=== PATIENT | male | born 1990 | race African-American/Black ===

== ENCOUNTER 2018-02-18 21:06 | Emergency (ER) | payer OTHER ==
[~2018-02-18] VITALS: Ht 182.9 cm; Wt 77.1 kg
[~2018-02-18 21:06] MED LIST: UNOBMED
[2018-02-18] MEDS ORDERED: LORazepam Inj 2mg/ml 1ml IM ONE (21:15)
[2018-02-18] MEDS ORDERED: Haloperidol 5mg/ml Inj IM ONE (21:15)
--- NOTE | 2018-02-18 21:18 | Emergency Room Report ---
History of Present Illness General Chief Complaint: Behavioral Complaint Source: EMS Present Illness HPI Is a 27-year-old male with a history of bipolar schizophrenia. He was brought in by EMS and police for agitation and bizarre behavior. Denies any drug use. He was walking on the street and then trying to get into a residential facility. He claimed that he is allergic to check for termite. He was not cooperative was very agitated. Please brought him in as a 5150 as a danger to self. Patient denies any drug use or alcohol use. He denies suicidal thoughts or homicidal thought. His speech is very pressured and he is very agitated. Allergies: Coded Allergies: UNABLE TO ASSESS (Unverified , 02/18/18) Patient History Past Medical History: see triage record, old chart reviewed, psych hx Past Surgical History: unable to obtain Pertinent Family History: unable to obtain Immunizations: other Reviewed Nursing Documentation: PMH: Agreed; PSxH: Agreed Review of Systems Eye: Denies: eye pain, blurred vision ENT: Denies: ear pain, nose congestion, throat swelling Respiratory: Denies: cough, shortness of breath Cardiovascular: Denies: chest pain, palpitations Gastrointestinal: Denies: abdominal pain, diarrhea, nausea, vomiting Musculoskeletal: Denies: back pain, joint pain Skin: Denies: rash Neurological: Denies: headache, numbness Endocrine: Denies: increased thirst, increased urine Hematologic/Lymphatic: Denies: easy bruising All Other Systems: negative except mentioned in HPI Physical Exam vitals with tachycardia Sp02 EP Interpretation: reviewed, normal General Appearance: well appearing, no apparent distress, alert Head: normocephalic, atraumatic Eyes: bilateral eye PERRL, bilateral eye EOMI ENT: hearing grossly normal, normal pharynx Neck: full range of motion, supple, no meningismus Respiratory: chest non-tender, lungs clear, normal breath sounds Cardiovascular #1: regular rate, rhythm, no murmur Gastrointestinal: normal bowel sounds, non tender, no mass, no organomegaly, no bruit, non-distended Musculoskeletal: back normal, normal range of motion Neurologic: alert, oriented x3, grossly normal Psychiatric: other - Agitated, not cooperative Skin: warm/dry Medical Decision Making Diagnostic Impression: Primary Impression: Psychosis Qualified Codes: F23 - Brief psychotic disorder Additional Impression: Polysubstance abuse ER Course Patient presents with acute psychosis secondary to drug abuse. He was combative and not cooperative on arrival. He received Haldol and Ativan while he was 2 and handcuffed. Since then he's been sleeping and calm. The restraints was able to be removed without difficulty. He was placed on a 5150 by police. He is medically cleared for psychiatric evaluation. We'll get psychiatric evaluation in the morning. He may be able to be cleared up a 5150. I will sign pt out to Dr. Sheth for psych eval and final disposition. Lab Results Impression labs unremarkable Status: improved Disposition: XFER TO PSYCH HOSP/UNIT Condition: Stable EILEEN WISE M.D. Feb 18, 2018 21:18
[2018-02-18 21:36] VITALS: BP 138/76
[2018-02-18 22:12] LABS: BASOPHILS % (AUTO) 1.5 % (0.0-2.0); EOSINOPHILS % (AUTO) 0.3 % (0.0-3.0); HEMATOCRIT 51.4 % (42.0-52.0); LYMPHOCYTES % (AUTO) 18.3 % (20.0-45.0); MEAN CORPUSCULAR VOLUME 86 FL (80-99); MONOCYTES % (AUTO) 4.1 % (1.0-10.0); NEUTROPHILS % (AUTO) 75.9 % (45.0-75.0); PLATELET COUNT 222 K/UL (150-450); RED BLOOD COUNT 5.96 M/UL (4.70-6.10); RED CELL DISTRIBUTION WIDTH 10.9 % (11.6-14.8); WHITE BLOOD COUNT 7.6 K/UL (4.8-10.8)
[2018-02-18 22:16] LABS: ANION GAP 13 mmol/L (5-15); BLOOD UREA NITROGEN 17 mg/dL (7-18); CALCIUM 9.2 MG/DL (8.5-10.1); CARBON DIOXIDE 22 MMOL/L (21-32); CHLORIDE 104 MMOL/L (98-107); CREATININE 1.6 MG/DL (0.55-1.30); POTASSIUM 3.4 MMOL/L (3.5-5.1); SODIUM 139 MMOL/L (136-145)
[2018-02-18 22:26] LABS: ALANINE AMINOTRANSFERASE 20 U/L (12-78); ALBUMIN 4.7 G/DL (3.4-5.0); ALBUMIN/GLOBULIN RATIO 1.3 (1.0-2.7); ALKALINE PHOSPHATASE 61 U/L (46-116); ASPARTATE AMINO TRANSFERASE 25 U/L (15-37); BILIRUBIN,TOTAL 2.6 MG/DL (0.2-1.0)
[2018-02-18 22:28] LABS: BILIRUBIN,DIRECT 0.3 MG/DL (0.0-0.3)
[2018-02-18 22:45] VITALS: BP 129/76
[2018-02-18 23:13] LABS: APPEARANCE,URINE CLEAR; BILIRUBIN, URINE NEGATIVE (NEGATIVE); GLUCOSE, URINE (UA) NEGATIVE (NEGATIVE); KETONES,URINE 2+ (NEGATIVE); LEUKOCYTE ESTERASE ,URINE NEGATIVE (NEGATIVE); NITRITE,URINE NEGATIVE (NEGATIVE); PH,URINE 6 (4.5-8.0); PROTEIN,URINE 2+ (NEGATIVE); UROBILINOGEN,URINE NORMAL MG/DL (0.0-1.0)
[2018-02-18 23:18] LABS: COLOR,URINE YELLOW
[2018-02-19] VITALS (7 sets, daily range): BP systolic 100–127; BP diastolic 65–78
--- NOTE | 2018-02-19 23:54 | Consultation ---
History of Present Illness General Chief Complaint: Behavioral Complaint Present Illness HPI 27-year-old male with a history of "bipolar schizophrenia", substance use d/o. He was brought in by EMS and police for agitation and bizarre behavior. the pt Denies any drug use, his system was positive for mj, cocaine and meth. the pt was in tented house. the pt was not suicidal however the hold was written for dts/ the pt cleared up and was not psychotic at the time of the eval Allergies: Coded Allergies: UNABLE TO ASSESS (Unverified , 02/18/18) Medication History Miscellaneous Medications Unable to Obtain Medications (Unable To Obtain Meds), (Reported) Patient History History Provided By: Patient, Medical Record, PMD Healthcare decision maker Resuscitation status Advanced Directive on File Review of Systems Psychiatric: Reports: prior hx, anxiety, depressed feelings, emotional problems Physical Exam General Appearance: no apparent distress, alert Neurologic: oriented x 3, responsive, normal mood/affect Last 24 Hour Vital Signs Date Time Temp Pulse Resp B/P (MAP) Pulse Ox O2 Delivery O2 Flow Rate FiO2 02/19/18 13:32 97.8 84 20 100/69 97 Room Air 97.8 02/19/18 10:00 97.8 84 20 100/69 97 Room Air 97.8 02/19/18 06:29 65 16 127/69 97 Room Air 02/19/18 05:15 98.7 65 20 117/65 98 Room Air 98.7 02/19/18 03:07 70 18 122/70 98 Room Air 02/19/18 01:46 72 16 125/78 97 Room Air 02/19/18 00:44 70 16 127/75 97 Room Air Height (Feet): 6 Weight (Pounds): 170 Assessment/Plan Status: stable Assessment/Plan substance use d/o not at imminent dts/dto -the pt hold will be discontinued -the pt will be discharged Miguelito Cottrell M.D. Feb 19, 2018 23:54
== END 2018-02-19 13:33 | disposition home or self-care (01) ==
LOC: EDBD 21:06 → EMR 21:20
DX: F23 Brief psychotic disorder (principal); F19.10 Other psychoactive substance abuse, uncomplicated; F31.9 Bipolar disorder, unspecified
CPT/HCPCS: 36415; 80053; 80307; 80329; 81003; 82248; 85025; 96372; 99284; J1630; J8499

== ENCOUNTER 2019-05-26 23:28 | Emergency (ER) | payer OTHER ==
[~2019-05-26] VITALS: Ht 177.8 cm; Wt 77.1 kg
[2019-05-26 23:30] VITALS: BP 137/94
--- NOTE | 2019-05-26 23:30 | NUR ---
ED Nurse Note: PT JOYCE MEDRANO 28 D/T SUBSTANCE ABUSE. PT PICKED UP FROM STREET. [employer] AT BEDSIDE. UNKOWN IF SUBSTANCE WAS INGESTED, INHALED, OR INJECTED.
--- NOTE | 2019-05-26 23:42 | NUR ---
ED Nurse Note: PT STATES "I TOOK METHADONE EARLIER TODAY BUT IM NOT SURE IF IT WAS MIXED WITH SOMETHING"
--- NOTE | 2019-05-26 23:50 | NUR ---
ED Nurse Note: PT UNABLE TO PROVIDE URINE SPECIMEN AT THIS TIME. INFORMED ERMD.
[2019-05-27 00:25] LABS: BASOPHILS % (AUTO) 1.6 % (0.0-2.0); EOSINOPHILS % (AUTO) 1.6 % (0.0-3.0); HEMATOCRIT 40.4 % (42.0-52.0); HEMOGLOBIN 13.5 G/DL (14.2-18.0); LYMPHOCYTES % (AUTO) 33.4 % (20.0-45.0); MEAN CORPUSCULAR VOLUME 88 FL (80-99); MONOCYTES % (AUTO) 10.1 % (1.0-10.0); NEUTROPHILS % (AUTO) 53.3 % (45.0-75.0); PLATELET COUNT 273 K/UL (150-450); WHITE BLOOD COUNT 5.9 K/UL (4.8-10.8)
--- NOTE | 2019-05-27 00:30 | NUR ---
ED Nurse Note: PT BEGAN TO UNDRESS HIMSELF, PT WAS GIVEN GOWN AND COVERED WITH BLANKET. PT REFUSES IN AND OUT CATH. NOT ABLE TO OBTAIN URINE AT THIS TIME.
[2019-05-27 00:42] LABS: ANION GAP 11 mmol/L (5-15); BLOOD UREA NITROGEN 22 mg/dL (7-18); CARBON DIOXIDE 28 MMOL/L (21-32); CHLORIDE 105 MMOL/L (98-107); CREATININE 1.4 MG/DL (0.55-1.30); POTASSIUM 3.8 MMOL/L (3.5-5.1); SODIUM 144 MMOL/L (136-145)
[2019-05-27 00:45] LABS: ALANINE AMINOTRANSFERASE 24 U/L (12-78); ALBUMIN 4.4 G/DL (3.4-5.0); ALBUMIN/GLOBULIN RATIO 1.3 (1.0-2.7); ALKALINE PHOSPHATASE 63 U/L (46-116); ASPARTATE AMINO TRANSFERASE 26 U/L (15-37); BILIRUBIN,TOTAL 1.3 MG/DL (0.2-1.0)
[2019-05-27 00:55] LABS: BILIRUBIN,DIRECT 0.3 MG/DL (0.0-0.3)
--- NOTE | 2019-05-27 01:20 | NUR ---
ED Nurse Note: PT IS CURRENTLY ASLEEP IN BED AT THE TIME. VSS. PT SHOWS NO DISTRESS. X2 SIDERAILS PLACED, BED SET AT LOWEST POSITION.
[2019-05-27 01:21] VITALS: BP 135/87
--- NOTE | 2019-05-27 02:09 | NUR ---
ED Nurse Note: pt urine specimen sent to lab
[2019-05-27 03:48] VITALS: BP 123/76
--- NOTE | 2019-05-27 03:48 | NUR ---
ER DISCHARGE NOTE: Patient is cleared to be discharged per ERMD, pt is aox4, on room air, with stable vital signs. pt was given dc and prescription instructions, pt was able to verbalize understanding, pt id band and iv site removed without complications. pt is able to ambulate with steady gait. pt took all belongings.
--- NOTE | 2019-05-27 22:15 | Emergency Room Report ---
History of Present Illness General Chief Complaint: Substance Abuse Source: Patient Present Illness HPI Patient is a 29-year-old male brought in by EMS after increased agitation. Patient had reportedly ingested Adderall earlier in the day. He reports having no complaints at this time. Patient was brought in by ambulance and has not been given any medications. He had initially been behaving bizarrely.Patient denies any fever. He denies any headache. He had prior history of polysubstance abuse. Allergies: Coded Allergies: UNABLE TO ASSESS (Unverified , 02/18/18) Patient History Past Medical History: see triage record Reviewed Nursing Documentation: PMH: Agreed; PSxH: Agreed Nursing Documentation-PMH Past Medical History: No Stated History Review of Systems All Other Systems: limited - Poor cooperation. Physical Exam Vital Signs Date Time Temp Pulse Resp B/P (MAP) Pulse Ox O2 Delivery O2 Flow Rate FiO2 05/26/19 23:29 98.4 84 20 137/94 (108) 98 Room Air Sp02 EP Interpretation: reviewed, normal General Appearance: normal inspection, well appearing, no apparent distress, alert, GCS 15, non-toxic Head: atraumatic ENT: normal ENT inspection, hearing grossly normal, normal voice Neck: normal inspection, full range of motion, supple, no bony tend Respiratory: normal inspection, lungs clear, normal breath sounds, no respiratory distress, no retraction, no wheezing Cardiovascular #1: regular rate, rhythm, no edema Gastrointestinal: normal inspection, normal bowel sounds, non tender, soft, no guarding, no hernia Genitourinary: no CVA tenderness Musculoskeletal: normal inspection, back normal, normal range of motion Neurologic: normal inspection, alert, responsive, speech normal Psychiatric: normal inspection Medical Decision Making Diagnostic Impression: Primary Impression: Substance abuse ER Course Patient presented for agitation. Differential diagnosis include was not limited to drug overdose, intracranial hemorrhage, dehydration, electrolyte abnormality among others. Because of complexity of patient's case laboratory tests and imaging studies were ordered. Patient was noted to have previous history of similar symptoms in the past. He appears to be intoxicated with methamphetamine. Patient was observed in the emergency department was noted to have gradual improvement in his mental status over time. Patient became less agitated. At the time of discharge patient was awake alert and oriented and ambulatory without assistance. Patient was able to ambulate without assistance. Patient was advised to return if he had any worsening condition or other concerns. He is advised to stop using drugs. Laboratory Tests Test 05/26/19 23:42 White Blood Count 5.9 K/UL (4.8-10.8) Red Blood Count 4.60 M/UL (4.70-6.10) L Hemoglobin 13.5 G/DL (14.2-18.0) L Hematocrit 40.4 % (42.0-52.0) L Mean Corpuscular Volume 88 FL (80-99) Mean Corpuscular Hemoglobin 29.3 PG (27.0-31.0) Mean Corpuscular Hemoglobin Concent 33.5 G/DL (32.0-36.0) Red Cell Distribution Width 11.0 % (11.6-14.8) L Platelet Count 273 K/UL (150-450) Mean Platelet Volume 6.3 FL (6.5-10.1) L Neutrophils (%) (Auto) 53.3 % (45.0-75.0) Lymphocytes (%) (Auto) 33.4 % (20.0-45.0) Monocytes (%) (Auto) 10.1 % (1.0-10.0) H Eosinophils (%) (Auto) 1.6 % (0.0-3.0) Basophils (%) (Auto) 1.6 % (0.0-2.0) Sodium Level 144 MMOL/L (136-145) Potassium Level 3.8 MMOL/L (3.5-5.1) Chloride Level 105 MMOL/L (98-107) Carbon Dioxide Level 28 MMOL/L (21-32) Anion Gap 11 mmol/L (5-15) Blood Urea Nitrogen 22 mg/dL (7-18) H Creatinine 1.4 MG/DL (0.55-1.30) H Estimate Glomerular Filtration Rate > 60 mL/min (>60) Glucose Level 109 MG/DL (74-106) H Calcium Level 10.0 MG/DL (8.5-10.1) Total Bilirubin 1.3 MG/DL (0.2-1.0) H Direct Bilirubin 0.3 MG/DL (0.0-0.3) Aspartate Amino Transferase (AST) 26 U/L (15-37) Alanine Aminotransferase (ALT) 24 U/L (12-78) Alkaline Phosphatase 63 U/L (46-116) Total Protein 7.7 G/DL (6.4-8.2) Albumin 4.4 G/DL (3.4-5.0) Globulin 3.3 g/dL Albumin/Globulin Ratio 1.3 (1.0-2.7) Salicylates Level < 0.2 ug/mL (2.8-20) L Urine Opiates Screen Negative (NEGATIVE) Acetaminophen Level < 2 MCG/ML (10-30) L Urine Barbiturates Screen Negative (NEGATIVE) Phencyclidine (PCP) Screen Negative (NEGATIVE) Urine Amphetamines Screen Positive (NEGATIVE) H Urine Benzodiazepines Screen Negative (NEGATIVE) Urine Cocaine Screen Negative (NEGATIVE) Urine Marijuana (THC) Screen Positive (NEGATIVE) H Serum Alcohol < 3 mg/dL Last Vital Signs Date Time Temp Pulse Resp B/P (MAP) Pulse Ox O2 Delivery O2 Flow Rate FiO2 05/27/19 03:48 98.4 73 16 123/76 100 Room Air Status: improved Disposition: HOME, SELF-CARE Condition: Stable Patient Instructions: Stimulant Use Disorder-Tee Valdez MD May 27, 2019 22:15
== END 2019-05-27 03:48 | disposition home or self-care (01) ==
LOC: EDBD 23:28 → EDUNIT# 23:28 → EMR 23:45
DX: F15.10 Other stimulant abuse, uncomplicated (principal); F12.10 Cannabis abuse, uncomplicated
CPT/HCPCS: 36415; 80053; 80196; 80307; 80329; 82248; 85025; Z7502; 99283

== ENCOUNTER 2020-01-02 03:21 | Emergency (ER) | payer OTHER ==
[~2020-01-02] VITALS: Ht 185.4 cm; Wt 86.2 kg
[2020-01-02 03:22] VITALS: BP 128/76
[2020-01-02] MEDS ORDERED: Bactrim-DS 1 tab ORAL ONE (03:30)
[2020-01-02] MEDS ORDERED: Cephalexin 500mg cap ORAL ONE (03:30)
[2020-01-02] MEDS ORDERED: BACTRIM DS TAB1 EAC1 ORAL (03:36)
[2020-01-02] MEDS ORDERED: CEPHALEXIN500 MG ORAL (03:36)
--- NOTE | 2020-01-02 03:37 | Emergency Room Report ---
History of Present Illness General Chief Complaint: Upper Extremity Injury Source: Patient Present Illness HPI Is a 29-year-old male who is right-hand dominant. He presents with chief complaint of spider bite. He has a history of schizophrenia and substance abuse. He claimed that his injury occur yesterday. He said is painful to the left index finger. No fever chills. Pain is throbbing in nature. No nausea or vomiting. It appeared that he had an I&D and surgical intervention to that left index finger. He said he was at [facility] 5 days ago and had some type of surgery. He was given Risperdal, Hope and antibiotic cream. He said he also got antibiotics but does not know the name. He said he was arrested yesterday and was handcuffed and he said to get worse. Patient was very vague historian. He denies any other complaint. Allergies: Coded Allergies: No Known Allergies (Unverified , 01/02/20) COVID-19 Screening Contact w/high risk pt: No Recent Travel to affected area: No Experienced COVID-19 symptoms?: No Patient History Past Medical History: see triage record, old chart reviewed Past Surgical History: none Pertinent Family History: none Social History: Denies: smoking Immunizations: other Reviewed Nursing Documentation: PMH: Agreed; PSxH: Agreed Review of Systems Eye: Denies: eye pain, blurred vision ENT: Denies: ear pain, nose congestion, throat swelling Respiratory: Denies: cough, shortness of breath Cardiovascular: Denies: chest pain, palpitations Gastrointestinal: Denies: abdominal pain, diarrhea, nausea, vomiting Musculoskeletal: Reports: joint swelling, muscle pain; Denies: back pain, joint pain Skin: Denies: rash Neurological: Denies: headache, numbness Endocrine: Denies: increased thirst, increased urine Hematologic/Lymphatic: Denies: easy bruising All Other Systems: negative except mentioned in HPI Physical Exam Vital Signs Date Time Temp Pulse Resp B/P (MAP) Pulse Ox O2 Delivery O2 Flow Rate FiO2 01/02/20 03:22 97.7 84 18 128/76 (93) 97 Room Air Vitals normal Sp02 EP Interpretation: reviewed, normal General Appearance: well appearing, no apparent distress, alert Head: normocephalic, atraumatic Eyes: bilateral eye PERRL, bilateral eye EOMI ENT: hearing grossly normal, normal pharynx Neck: full range of motion, supple, no meningismus Respiratory: chest non-tender, lungs clear, normal breath sounds Cardiovascular #1: regular rate, rhythm, no murmur Gastrointestinal: normal bowel sounds, non tender, no mass, no organomegaly, no bruit, non-distended Musculoskeletal: back normal, normal range of motion, gait/station normal, swelling - Right index finger: On the ulnar aspect, he had a longitudinal I&D done. There is scant amount of discharge. He has uniform edema. Cap refill less than 2 seconds. Psychiatric: mood/affect normal Medical Decision Making Diagnostic Impression: Primary Impression: Tenosynovitis of finger Additional Impressions: Substance abuse Wound check, abscess ER Course Patient presents with finger pain. I suspect that he had tenosynovitis secondary to an abscess from substance abuse. He had I&D done of that finger. Edges are clean and straight. Looks like he had surgical intervention and was left open with wet-to-dry dressing. I have the dressing done. I gave patient Bactrim and Keflex here. Patient already had intervention done. No need for further I&D. He is not febrile or copious amount of purulent discharge. Will discharge home. Last Vital Signs Date Time Temp Pulse Resp B/P (MAP) Pulse Ox O2 Delivery O2 Flow Rate FiO2 01/02/20 03:22 97.7 84 18 128/76 (93) 97 Room Air Status: improved Disposition: HOME, SELF-CARE Condition: Stable Scripts Cephalexin* (KEFLEX*) 500 Mg Capsule 500 MG ORAL TID, #21 CAP Prov: Thomas Bennett MD 01/02/20 Trimethoprim/Sulfamethoxazole 160/800* (BACTRIM DS TABLET*) 1 Each Tablet 1 TAB ORAL Q12H, #14 TAB 0 Refills Prov: Thomas Bennett MD 01/02/20 Additional Instructions: Keep wound clean. Apply dressing twice a day. Follow-up with your doctor in 7 days. Return if symptoms worsen. Thomas Bennett MD January 02, 2020 03:37
[2020-01-02] MEDS ORDERED: Neosporin Oint Ud Pkt TOPIC ONE (03:45)
[2020-01-02 05:00] VITALS: BP 128/76
== END 2020-01-02 05:00 | disposition home or self-care (01) ==
LOC: EDBD 03:21 → EMR 03:55
DX: M65.9 Synovitis and tenosynovitis, unspecified (principal); F19.10 Other psychoactive substance abuse, uncomplicated; L02.511 Cutaneous abscess of right hand; F20.9 Schizophrenia, unspecified
CPT/HCPCS: 99283

== ENCOUNTER 2020-01-14 10:21 | Emergency (ER) | payer OTHER ==
[~2020-01-14] VITALS: Ht 172.7 cm; Wt 54.4 kg
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
[~2020-01-14 10:21] MED LIST changes: +BACTRIM DS TAB1 EAC1 ORAL; +CEPHALEXIN500 MG ORAL
[2020-01-14 10:34] VITALS: BP 125/75
[2020-01-14 10:52] LABS: BASOPHILS % (AUTO) 1.9 % (0.0-2.0); EOSINOPHILS % (AUTO) 2.5 % (0.0-3.0); HEMATOCRIT 38.6 % (42.0-52.0); LYMPHOCYTES % (AUTO) 47.1 % (20.0-45.0); MEAN CORPUSCULAR VOLUME 84 FL (80-99); MONOCYTES % (AUTO) 7.6 % (1.0-10.0); NEUTROPHILS % (AUTO) 40.9 % (45.0-75.0); PLATELET COUNT 273 K/UL (150-450); RED BLOOD COUNT 4.58 M/UL (4.70-6.10); RED CELL DISTRIBUTION WIDTH 11.1 % (11.6-14.8); WHITE BLOOD COUNT 5.1 K/UL (4.8-10.8)
[2020-01-14 10:56] LABS: ANION GAP 9 mmol/L (5-15); BLOOD UREA NITROGEN 18 mg/dL (7-18); CARBON DIOXIDE 27 MMOL/L (21-32); CHLORIDE 106 MMOL/L (98-107); CREATININE 1.2 MG/DL (0.55-1.30); POTASSIUM 3.4 MMOL/L (3.5-5.1); SODIUM 142 MMOL/L (136-145)
[2020-01-14 11:01] LABS: ALANINE AMINOTRANSFERASE 27 U/L (12-78); ALBUMIN/GLOBULIN RATIO 1.1 (1.0-2.7); ALKALINE PHOSPHATASE 75 U/L (46-116); ASPARTATE AMINO TRANSFERASE 26 U/L (15-37); BILIRUBIN,TOTAL 0.6 MG/DL (0.2-1.0)
[2020-01-14 11:14] LABS: APPEARANCE,URINE CLEAR; BILIRUBIN, URINE NEGATIVE (NEGATIVE); GLUCOSE, URINE (UA) NEGATIVE (NEGATIVE); KETONES,URINE 1+ (NEGATIVE); LEUKOCYTE ESTERASE ,URINE 1+ (NEGATIVE); NITRITE,URINE NEGATIVE (NEGATIVE); PH,URINE 6 (4.5-8.0); PROTEIN,URINE 2+ (NEGATIVE); UROBILINOGEN,URINE 1 MG/DL (0.0-1.0)
[2020-01-14 11:16] LABS: COLOR,URINE YELLOW
[2020-01-14 13:42] VITALS: BP 120/84
--- NOTE | 2020-01-16 16:30 | Diagnostic Imaging Report ---
Procedure: XRAY Chest 1v Reason for study: Shortness of breath. Comparison films: None. FINDINGS: A single one view chest is obtained. Vascularity is normal. The lung michaels are clear bilaterally. Cardiac and mediastinal silhouette are within normal limits. CP angles are sharp. The bony thorax appear unremarkable. IMPRESSION: NO ACUTE CARDIOPULMONARY DISEASE.
== END 2020-01-14 13:42 | disposition home or self-care (01) ==
LOC: EDBD 10:21 → MERGE 10:35 → EMR 10:35 → EDBD 10:35 → EMR 13:42
DX: F15.10 Other stimulant abuse, uncomplicated (principal); F12.20 Cannabis dependence, uncomplicated; F91.9 Conduct disorder, unspecified
CPT/HCPCS: 36415; 71045; 80053; 80307; 81003; 83735; 85025; G0480; G0481; Z7502; 99283

== ENCOUNTER 2020-05-24 19:43 | Emergency (ER) | payer OTHER ==
[~2020-05-24] VITALS: Ht 180.3 cm; Wt 70.3 kg
--- NOTE | 2020-05-24 19:50 | NUR ---
ED Nurse Note: Pt brought in by RA Nelia from [facility], pt with [employer], not in custody. Pt wearing only underwear. Pt is A&Ox2, crying, answering questions, disorganized speech. cooperative. Pt is speaking to voices. Pt denies drugs or ETOH at this moment, VSS. Pt placed on cardiac/vascular sonographer.
[2020-05-24] MEDS ORDERED: DOXYCYCLINE MO100 MG ORAL (19:56)
[2020-05-24 19:57] VITALS: BP 140/68
[2020-05-24] MEDS ORDERED: LORazepam 1mg tab ORAL ONE (20:00)
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
[2020-05-24 22:15] VITALS: BP 128/68
== END 2020-05-24 22:15 | disposition home or self-care (01) ==
LOC: EDBD 19:43 → EMR 19:55
DX: R45.1 Restlessness and agitation (principal); Z59.0 Homelessness; L02.214 Cutaneous abscess of groin
CPT/HCPCS: 99282

== ENCOUNTER 2020-09-12 15:31 | Emergency (ER) | payer OTHER ==
[~2020-09-12] VITALS: Ht 185.4 cm; Wt 73.5 kg
[~2020-09-12 15:31] MED LIST changes: +DOXYCYCLINE MO100 MG ORAL
[2020-09-12] MEDS ORDERED: Tetanus/Diptheria/Pertussis IM ONE (16:15)
[2020-09-12] MEDS ORDERED: Bacitracin Oint UD TOPIC ONE (16:15)
--- NOTE | 2020-09-12 16:35 | Diagnostic Imaging Report ---
FILM PELVIS INDICATION: Trauma. COMPARISON: None FINDINGS: No fractures or dislocations are seen about the hips. Limited visualization of the sacrum due to bowel. Bone mineralization and joint spaces are preserved. IMPRESSION: No fracture or subluxation.
--- NOTE | 2020-09-12 16:45 | NUR ---
ED Nurse Note:pt. fell couple days ago and has left hip wound, it was cleaned and dressing placed with bacitricin
[2020-09-12 17:05] VITALS: BP 97/66
[2020-09-12] MEDS ORDERED: BACITRACIN ZIN1 EACH TOPIC (18:15)
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
[2020-09-12 18:35] VITALS: BP 110/72
[2020-09-12 18:51] VITALS: BP 110/72
--- NOTE | 2020-09-12 18:52 | NUR ---
discharged home with instruction and rx follow up with pmd
== END 2020-09-12 18:40 | disposition home or self-care (01) ==
LOC: EMR 16:04
DX: S70.212A Abrasion, left hip, initial encounter (principal); W19.XXXA Unspecified fall, initial encounter; Y92.810 Car as the place of occurrence of the external cause; Z23 Encounter for immunization
CPT/HCPCS: 72170; 90471; 90715; Z7502; 99283